=== PATIENT | female | born 1975 | race Hispanic/Latino ===

== ENCOUNTER 2016-12-28 17:39 | Observation (INO) | payer OTHER ==
[2016-12-28 18:40] LABS: RBC URINE 1 /hpf (0-3); URINE BACTERIA RARE (<OCC); URINE BILIRUBIN NEGATIVE (NEGATIVE); URINE BLOOD NEGATIVE (NEGATIVE); URINE COLOR Straw (YELLOW); URINE GLUCOSE (UA) NORMAL (Normal); URINE KETONE NEGATIVE (NEGATIVE); URINE LEUKOCYTE ESTERASE NEG Leu/uL (Negative); URINE PROTEIN NEGATIVE (NEGATIVE); URINE UROBILINOGEN NORMAL mg/dL (0.2-1.0); WBC URINE 1 /hpf (0-5)
--- NOTE | 2016-12-28 19:39 | C.PDOC ---
History Of Present Illness 41F c/o left side ant cp intermittent for 4 days lasting several hours at a time , this current episode lasting 7 hours so far. worse w walking. assoc sob. had recent nl myocard scan for same sx. dx w right coronary vasospasm in 2013. Time Seen by Provider: 12/28/16 19:33 Chief Complaint (Nursing): Chest Pain Past Medical History Vital Signs: Last Vital Signs Temp 98.4 F 12/28/16 18:04 Pulse 68 12/28/16 18:20 Resp 20 12/28/16 18:04 BP 138/73 12/28/16 18:20 Pulse Ox 100 12/28/16 19:39 - Medical History PMH: Anxiety, Arthritis, Asthma, Back Problems, Bipolar Disorder, Bronchitis, CAD, Cardia Arrhythmia, Depression, Fibromyalgia, Gastritis, HTN, Hypercholesterolemia, Pneumonia (8 yrs ago), Rheumatoid Arthritis Denies: Diabetes, Hepatitis, HIV, Chronic Kidney Disease, Seizures, Sexually Transmitted Disease, Sleep Apnea (snores) Surgical History: Back Surgery, Cholecystectomy - [facility] Procedures LEFT HEART CARDIAC CATH (01/10/14) LT HEART ANGIOCARDIOGRAM (01/10/14) Family History: States: Diabetes - Social History Hx Tobacco Use: No Hx Alcohol Use: No Hx Substance Use: No - Immunization History Hx Tetanus Toxoid Vaccination: No Hx Influenza Vaccination: Yes Hx Pneumococcal Vaccination: Yes Review Of Systems Except As Marked, All Systems Reviewed And Found Negative. Constitutional: Negative for: Fever, Chills Cardiovascular: Positive for: Chest Pain Respiratory: Positive for: Shortness of Breath. Negative for: Cough Gastrointestinal: Negative for: Nausea, Vomiting Genitourinary: Negative for: Dysuria Neurological: Positive for: Dizziness. Negative for: Weakness, Numbness Physical Exam - Physical Exam Appears: Well, Non-toxic, No Acute Distress Skin: Warm, Dry Head: Atraumatic Eye(s): bilateral: PERRL Neck: Normal ROM Cardiovascular: Rhythm Regular, No Murmur Respiratory: Normal Breath Sounds, No Decreased Breath Sounds, No Accessory Muscle Use, No Rales, No Rhonchi, No Stridor, No Wheezing Gastrointestinal/Abdominal: Soft, No Tenderness Extremity: No Swelling Pulses: Left Radial: Normal, Right Radial: Normal Neurological/Psych: Oriented x3, Other (no focal deficits) ED Course And Treatment O2 Sat by Pulse Oximetry: 100 Medical Decision Making Medical Decision Making: ecg- nsr 70, nl axis, nl acute ischemia
[2016-12-28 20:19] LABS: BASO % 0.2 % (0.0-2.0); EOS # 0.1 K/uL (0.0-0.7); EOS % 0.8 % (0.0-4.0); HEMATOCRIT 41.9 % (34.0-47.0); LYMPH # 3.9 K/uL (1.0-4.3); MEAN CORPUSCULAR HEMOGLOBIN 28.9 pg (27.0-31.0); MEAN PLATELET VOLUME 9.2 fL (7.2-11.7); MONO # 0.7 K/uL (0.0-0.8); MONO % 5.2 % (0.0-10.0); RED CELL DISTRIBUTION WIDTH 12.9 % (11.5-14.5); WHITE BLOOD COUNT 13.4 K/uL (4.8-10.8)
[2016-12-28 20:30] LABS: CHLORIDE 96 mmol/L (98-107); SODIUM 138 mmol/L (132-148)
[2016-12-28 20:31] LABS: POTASSIUM 3.8 mmol/L (3.6-5.2)
[2016-12-28 20:33] LABS: ALB/GLOB RATIO 1.1 (1.0-2.1); ALKALINE PHOSPHATASE 48 U/L (38-126); ALT/SGPT 35 U/L (9-52); AST/SGOT 24 U/L (14-36); BILIRUBIN,TOTAL 0.7 mg/dL (0.2-1.3); BLOOD UREA NITROGEN 12 mg/dL (7-17); CARBON DIOXIDE 26 mmol/L (22-30); GFR AFRICAN-AMERICAN > 60; TOTAL PROTEIN 8.4 g/dL (6.3-8.3)
[2016-12-28 20:34] LABS: CALCIUM 9.2 mg/dl (8.6-10.4); GLUCOSE,RANDOM 79 mg/dL (65-105)
[2016-12-28] MEDS ORDERED: Iohexol 350mg/ml 100 ML ONE (20:48)
--- NOTE | 2016-12-28 22:15 | CT ---
EXAM: CT Angiography Chest With Intravenous Contrast. CLINICAL HISTORY: 41 years old, female; Pain and signs and symptoms; Shortness of breath; Chest pressure; Additional info: Cp SOB TECHNIQUE: Axial computed tomographic angiography images of the chest with intravenous contrast using pulmonary embolism protocol. This CT exam was performed using one or more of the following dose reduction techniques: automated exposure control, adjustment of the mA and/or kV according to patient size, and/or use of iterative reconstruction technique. MIP reconstructed images were created and reviewed. Coronal and sagittal reformatted images were created and reviewed. CONTRAST: 100 mL of OMNIPAQUE 350 administered intravenously. COMPARISON: No relevant prior studies available. FINDINGS: Limitations: Motion artifact - mild. Pulmonary arteries: No definite pulmonary embolism. Aorta: Minimal atherosclerotic disease of aorta. No aortic aneurysm. Lungs: No consolidation. Pleural space: No significant effusion. No pneumothorax. Heart: No cardiomegaly. No significant pericardial effusion. Bones/joints: No acute fracture. No dislocation. Soft tissues: Unremarkable. Lymph nodes: No pathologically enlarged lymph nodes. IMPRESSION: 1. No definite CT evidence of pulmonary embolism. 2. Incidental/non-acute findings are described above. 1
[2016-12-28] MEDS ORDERED: Enoxaparin 40 mg Syringe ONE (22:36)
[2016-12-28] MEDS ORDERED: Enoxaparin 40 mg Syringe SC ONE (23:12)
[2016-12-29] MEDS ORDERED: Oxycodone/Acetaminophen 5/325 mg Tab ONE ×2 (00:09→06:51)
[2016-12-29] MEDS: Oxycodone/Acetaminophen 5/325 mg Tab PO PRN ×2 (00:09→06:53)
[2016-12-29 00:13] VITALS: RESP 16; TEMP 97.8
[2016-12-29] MEDS ORDERED: Nitroglycerin 2% Ointment Foilpak UD TOP STA (00:27)
[2016-12-29] MEDS ORDERED: Nitroglycerin 2% Ointment Foilpak UD TOP ONE (00:48)
[2016-12-29 06:09] VITALS: BP 117/69; PULSE 63; O2SAT 99
[2016-12-29] MEDS ORDERED: Albuterol HFA 90 mcg/actuation (8 g) INH PRN (06:09)
--- NOTE | 2016-12-29 09:21 | CP.PCM.PN ---
Subjective - Date & Time of Evaluation Date of Evaluation: 12/29/16 Time of Evaluation: 08:55 - Subjective Subjective: PGY2 Medicine Note - Dr. Harding's service: Patient seen and examined at bedside this AM. Patient is a 41 year old female with PMHx or anxiety, bipolar, arhtirtis, anemia, CAD, depression, gastritis and HTN admitted overnight for chest pain. Patient reports left sided chest pain intermittently for 4 days. 3 days ago she had the pain for a few hours. Last night it came back when she was walking 4 blocks. The pain radiated down her left shoulder. Patient went home and lied down. Pain did not get better. It felt like a crushing pain squeezing her heart. Patient says it is associated with SOB and feeling hot and dizzy but no diaphoresis. Patient denies acid reflux symptoms associated with the pain. Patient also feels nauseous. Pain relieved with nitro SL. Patient denies fever, chills, abdominal pain, vomiting, diarrhea, constipation, dysuria. Objective - Vital Signs/Intake and Output Vital Signs (last 24 hours): Temp Pulse Resp BP Pulse Ox 97.8 F 63 16 117/69 99 12/29/16 06:07 12/29/16 06:07 12/29/16 06:07 12/29/16 06:07 12/29/16 06:07 - Medications Medications: Current Medications Albuterol (Ventolin Hfa 90 Mcg/Actuation (8 G)) 2 puff INH PRN PRN PRN Reason: Shortness of Breath Aspirin (Aspirin) 325 mg PO DAILY [facility] Enoxaparin Sodium (Lovenox) 40 mg SC DAILY [facility] Home Med (Symbicort 80-4.5 Mcg Inhaler) 2 puff INH PRN PRN PRN Reason: Shortness of Breath Nitroglycerin (Nitrostat Sl Tab) 0.4 mg SL Q5M PRN PRN Reason: chest pain Last Admin: 12/29/16 00:11 Dose: 0.4 mg Oxycodone/Acetaminophen (Percocet 5/325 Mg Tab) 1 tab PO Q4H PRN PRN Reason: Pain, moderate (4-7) Stop: 12/31/16 23:04 Last Admin: 12/29/16 06:53 Dose: 1 tab Verapamil HCl (Calan Sr Tab) 120 mg PO BID GINNY - Constitutional Appears: Non-toxic, No Acute Distress - Head Exam Head Exam: NORMAL INSPECTION - Eye Exam Eye Exam: EOMI - ENT Exam ENT Exam: Mucous Membranes Moist - Respiratory Exam Respiratory Exam: Clear to Ausculation Bilateral, NORMAL BREATHING PATTERN. absent: Chest Wall Tenderness, Rales, Rhonchi, Wheezes - Cardiovascular Exam Cardiovascular Exam: REGULAR RHYTHM, +S1, +S2. absent: Gallop, JVD, Rubs, Murmur - GI/Abdominal Exam GI & Abdominal Exam: Soft, Normal Bowel Sounds. absent: Distended, Firm, Tenderness - Extremities Exam Extremities Exam: Normal Capillary Refill. absent: Pedal Edema - Neurological Exam Neurological Exam: Alert, Oriented x3 - Psychiatric Exam Psychiatric exam: Normal Affect, Normal Mood - Skin Skin Exam: Normal Color, Warm Assessment and Plan - Assessment and Plan (Free Text) Assessment: (1) Chest discomfort Assessment & Plan: Cardio consulted- Dr. Jalloh-help appreciated, f/u recommendations Patient with history of non obstructive cardiac cath. SEAN negative X2 EKG in the ED showed NSR at 70 bpm CXR 12/17/16 shows no acute disease. Chest CT shows no definite PE SL Nitro PRN ASA 325 mg PO daily Status: Acute (2) Fibromyalgia Assessment & Plan: Possible cause of chest pain Percocet 5/325mg PO Q4H PRN (3) Asthma Assessment & Plan: Not exacerbated Ventolin 2 puff INH PRN (4)HTN Assessment & Plan: Continue home med [id number] mg PO BID (5) Prophylactic measure Assessment & Plan: SCDs Lovenox 40mg SC dailyf Protonix 40 mg PO daily Management as per Dr. Harding
[2016-12-29] MEDS ORDERED: Fluticasone-Salmeterol 250-50mcg Diskus INH SCH (09:30)
[2016-12-29] MEDS ORDERED: Pantoprazole 40 mg EC Tab PO SCH (10:00)
[2016-12-29] MEDS ORDERED: Enoxaparin 40 mg Syringe SC SCH (10:00)
[2016-12-29] MEDS ORDERED: Verapamil 120 mg ER Tab PO SCH (10:00)
--- NOTE | 2016-12-29 10:30 | RAD ---
HISTORY: cp COMPARISON: Comparison chest 12/17/2016 TECHNIQUE: Chest PA and lateral FINDINGS: LUNGS: No active pulmonary disease. PLEURA: No significant pleural effusion identified. No pneumothorax apparent. CARDIOVASCULAR: Normal. OSSEOUS STRUCTURES: No significant abnormalities. VISUALIZED UPPER ABDOMEN: Normal. OTHER FINDINGS: None. IMPRESSION: No active disease.
--- NOTE | 2016-12-29 20:03 | CARD ---
APPROVED REPORT EKG Measurement Heart [id number] <Conclusion> Normal sinus rhythm Normal ECG
--- NOTE | 2016-12-30 09:50 | HP ---
This 41-year-old female is admitted to the hospital with chief complaint of chest pain. The patient came to the hospital and advised admission. The patient has a past medical history of fibromyalgia, mild asthma and chest pain in the past. Workup is negative. PHYSICAL EXAMINATION: GENERAL: The patient is awake, alert, oriented. VITAL SIGNS: Temperature 98, pulse 90. HEENT: Within normal limits. NECK: Supple. CHEST: Symmetrical. HEART: Regular. ABDOMEN: Soft. EXTREMITIES: No edema. ASSESSMENT: The patient suffers from chest pain syndrome. The patient on bedrest, supportive care. Nikcy Madison MD cc: [id number] TT: 12/29/2016 16:19:12 wv
--- NOTE | 2016-12-30 12:00 | CARD ---
APPROVED REPORT EKG Measurement Heart [id number] <Conclusion> Sinus bradycardia Otherwise normal ECG
== END 2016-12-29 14:02 | disposition home or self-care (01) ==
LOC: C.ER 17:39 → C.9E 22:19
PROVIDERS: ADMIT Internal Medicine Pulmonary Disease; ATTEND Internal Medicine Pulmonary Disease
DX: R07.9 Chest pain, unspecified (principal); I10 Essential (primary) hypertension; E78.00 Pure hypercholesterolemia, unspecified; F31.9 Bipolar disorder, unspecified; I25.10 Atherosclerotic heart disease of native coronary artery without angina pectoris; M79.7 Fibromyalgia
CPT/HCPCS: 71020; 71275; 80053; 80324; 80345; 80346; 80349; 80353; 80358; 80361; 81001; 83992; 84484; 84703; 85025; 93005; 96372; G0378; J1650; Q9967

== ENCOUNTER 2017-01-30 13:43 | Emergency (ER) | payer OTHER ==
[2017-01-30 13:53] VITALS: TEMP 99.5
[2017-01-30] MEDS ORDERED: Albuterol-Ipratrop 3 mg / 0.5 (3 ml) UD ONE (13:57)
[2017-01-30] MEDS ORDERED: MethylPREDNISolone 40 mg Vial IVP STA (13:58)
[2017-01-30] MEDS ORDERED: Albuterol-Ipratrop 3 mg / 0.5 (3 ml) UD IH STA ×3 (13:58→13:59)
[2017-01-30] MEDS ORDERED: MethylPREDNISolone 40 mg Vial ONE (14:10)
--- NOTE | 2017-01-30 14:37 | C.PDOC ---
History Of Present Illness Patient is a 41 year old female with a PMHx of CAD, HTN, and asthma/bronchitis who presents to the ER with a complaint of a cough with green sputum for the past 2 days. Patient states she has a nebulizer machine at home but no medications. Patient was diagnosed with URI and strep earlier this week. Patient is on azithromycin and promethazine. Patient saw PMD who sent her home with one nebulizer treatment and 40 mg of solumedrol. Denies chest pain or recent travel. Time Seen by Provider: 01/30/17 13:45 Chief Complaint (Nursing): Shortness Of Breath History Per: Patient History/Exam Limitations: no limitations Onset/Duration Of Symptoms: Days (2) Current Symptoms Are (Timing): Still Present Current Respiratory Medications: None Associated Symptoms: Productive Cough (Green sputum) Past Medical History Reviewed: Historical Data, Nursing Documentation, Vital Signs Vital Signs: Last Vital Signs Temp 99.5 F 01/30/17 13:46 Pulse 119 H 01/30/17 16:06 Resp 20 01/30/17 16:06 BP 135/81 01/30/17 16:06 Pulse Ox 98 01/30/17 16:06 - Medical History PMH: Anxiety, Arthritis, Asthma, Back Problems, Bipolar Disorder, Bronchitis, CAD, Cardia Arrhythmia, Depression, Fibromyalgia, Gastritis, HTN, Hypercholesterolemia, Pneumonia (8 yrs ago), Rheumatoid Arthritis Surgical History: Back Surgery, Cholecystectomy - [facility] Procedures LEFT HEART CARDIAC CATH (01/10/14) LT HEART ANGIOCARDIOGRAM (01/10/14) Family History: States: Unknown Family Hx, Diabetes - Social History Hx Tobacco Use: No Hx Alcohol Use: No Hx Substance Use: No - Immunization History Hx Tetanus Toxoid Vaccination: No Hx Influenza Vaccination: Yes Hx Pneumococcal Vaccination: Yes Review Of Systems Cardiovascular: Negative for: Chest Pain Respiratory: Positive for: Cough, Sputum (Green) Physical Exam - Physical Exam Additional Physical Exam Comments: Constitutional: Coughing frequently. Head: Normocephalic. Atraumatic. Eyes: PERRL. ENT: Moist mucous membranes. Neck: Supple. Cardiovascular: Mild tachycardia. Chest: No tenderness. Respiratory: No wheezing. Clear to auscultation bilaterally. GI: Soft. Nontender. Nondistended. Back: No CVA tenderness. Musculoskeletal: No tenderness or swelling of extremities. Skin: No rash. Neurologic: Alert, no focal deficit. ED Course And Treatment O2 Sat by Pulse Oximetry: 93 (Room air) Medical Decision Making Medical Decision Making: CXR and peak flow pre/post tx ordered. Solumedrol and duonebs ordered. Patient felt much better after treatment and wished to go home. CXR no infiltatrate or consolidation. Discharged home on Prednisone, albuterol, f/u PMD , return to ER for worsening breathing. Disposition - Disposition Disposition: HOME/ ROUTINE Disposition Time: 15:22 Condition: STABLE Prescriptions: Albuterol 0.083% [Albuterol Sulfate 3 Ml] 3 ml IH Q4 #150 neb Prednisone [Deltasone] 3 tab PO DAILY #12 tablet Promethazine/Codeine [Codeine/Promethazine 10 MG/5 Ml-6.25 MG/5 Ml] 5 ml PO Q8H #60 ml Instructions: Acute Bronchitis (ED) Forms: Work Excuse - Clinical Impression Clinical Impression: Cough - Scribe Statement The provider has reviewed the documentation as recorded by the Scribkaci Reddy All medical record entries made by the Kateyibkaci were at my direction and personally dictated by me. I have reviewed the chart and agree that the record accurately reflects my personal performance of the history, physical exam, medical decision making, and the department course for this patient. I have also personally directed, reviewed, and agree with the discharge instructions and disposition.
[2017-01-30] MEDS ORDERED: CHLORPHENIRAMINE PO STA (15:09)
[2017-01-30] MEDS ORDERED: HYDROCODONE PO STA (15:09)
[2017-01-30] MEDS ORDERED: Promethazine/Cod 6.25mg-10mg/5ml Syr UD PO STA (15:13)
[2017-01-30] MEDS ORDERED: Promethazine/Cod 6.25mg-10mg/5ml Syr UD ONE (15:28)
[2017-01-30 16:07] VITALS: BP 135/81; PULSE 119; RESP 20
--- NOTE | 2017-01-30 17:25 | RAD ---
HISTORY: cough COMPARISON: 12/28/16 TECHNIQUE: Chest PA and lateral FINDINGS: LUNGS: Poor inspiration with low lung volumes, mild crowded bronchovascular markings and mild bibasilar atelectasis. PLEURA: No significant pleural effusion identified. No pneumothorax apparent. CARDIOVASCULAR: Normal. OSSEOUS STRUCTURES: No significant abnormalities. VISUALIZED UPPER ABDOMEN: Normal. OTHER FINDINGS: None. IMPRESSION: Poor inspiration with low lung volumes, mild crowded bronchovascular markings and mild bibasilar atelectasis.
[2017-01-30 20:27] VITALS: O2SAT 93
== END 2017-01-30 16:09 | disposition home or self-care (01) ==
LOC: C.ER 13:43
DX: R05 Cough (principal)
CPT/HCPCS: 71020; 94640; 96374; 99284; J2920